=== PATIENT | male | born 1955 | race African-American/Black ===

== ENCOUNTER 2018-09-05 04:14 | Inpatient (IN) | payer OTHER ==
[2018-09-05] VITALS (7 sets, daily range): BP systolic 131–166; BP diastolic 61–84
[~2018-09-05] VITALS: Ht 177.8 cm; Wt 102.5 kg
--- NOTE | ~2018-09-05 | EKG ---
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89 : 1955 Requested By: Ivan Reddy Order Number: [id number] MD: Justus Rangel Measurements Intervals [place] Rate: 66 P: 79 CT: 163 QRS: -69 QRSD: 153 T: 49 QT: 402 QTc: 422 Interpretive Statements Sinus rhythm Right bundle branch block Possible Inferior infarct, old Compared to ECG 10/17/2015 11:17:52 Small inferior Q waves are now present Electronically Signed On 09-05-2018 8:18:54 CDT by Justus Rangel [email or web address] <ELECTRONICALLY SIGNED> By: Justus Rangel MD, [facility] 09/05/18 0818 0417 [id number] Justus Rangel MD, [facility] /EPI
[~2018-09-05 04:14] MED LIST: AMOXICILLIN 50500 MG PO; ASPIRIN81 M2 PO; ATIVAN0.5 MG PO; BENAZEPRIL-HCT1 EA10 PO; BENAZEPRIL-HCT1 EACH PO; BLOOD PRESSURE MED; CARISOPRODOL 3350 MG PO; CEFTRIAXON2 GM/50 ML IV; CELEBREX 200 M200 MG PO; COLACE 100 MG100 MG PO; CYMBALTA30 MG PO; DICLOFENAC SODI75 MG PO; FLOMAX0.4 MG PO; HYDROCODON-ACE1 EAC5 PO; HYDROCODONE-AP1 EAC6 PO; LASIX 40 MG TAB40 MG PO; LOPRESSOR25 PO; METHADONE HCL 110 M1 PO; NORFLEX100 MG PO; PERCOCET 5-3251 EACH PO; POTASSIUM20 PO; PRAVACHOL20 MG PO; PRAVACHOL40 MG PO; PREDNISONE 10 M10 MG PO; PREDNISONE 5 MG5 M1 PO; PRILOSEC40 MG PO; TOPROL XL25 MG PO; VALIUM5 MG PO; ZOFRAN ODT4 MG DISSOLVE
[2018-09-05] MEDS ORDERED: LOTENSIN10 MG PO (04:31)
[2018-09-05 04:32] LABS: ABSOLUTE NEUTROPHILS 3.3 thou/uL (1.4-8.2); EOSINOPHILS 2.3 % (0.0-3.0); HEMATOCRIT 42.2 % (42.0-52.0); HEMOGLOBIN 14.5 gm/dL (14.0-18.0); LYMPHOCYTES 46.3 % (24.0-44.0); MCH 31.5 pg (26.0-34.0); MCHC 34.4 g/dL (28.0-37.0); MCV 91.8 fL (80.0-100.0); MONOCYTES 9.5 % (1.0-8.0); PLATELET COUNT 237 thou/uL (150-400); POLYS 40.9 % (36.0-66.0); RDW 13.6 % (10.5-14.5)
[2018-09-05 04:40] LABS: ANION GAP 9 mmol/L (7-16); BUN 17 mg/dL (7-18); CHLORIDE 104 mmol/L (98-107); CO2 25 mmol/L (21-32); CREATININE 0.9 mg/dL (0.7-1.3); GLUCOSE 123 mg/dL (74-106); POTASSIUM 3.8 mmol/L (3.5-5.1); SODIUM 138 mmol/L (136-145)
[2018-09-05 04:49] LABS: TROPONIN-I <0.06 ng/mL (<0.06)
[2018-09-06 00:05] VITALS: BP 123/69
[2018-09-06 04:09] LABS: CREATININE 0.9 mg/dL (0.7-1.3); POTASSIUM 4.1 mmol/L (3.5-5.1)
[2018-09-06 04:36] LABS: ABSOLUTE NEUTROPHILS 4.6 thou/uL (1.4-8.2); BASOPHILS 0.5 % (0.0-2.0); EOSINOPHILS 1.4 % (0.0-3.0); HEMOGLOBIN 13.3 gm/dL (14.0-18.0); MCH 30.7 pg (26.0-34.0); MCHC 33.3 g/dL (28.0-37.0); MCV 92.2 fL (80.0-100.0); MONOCYTES 6.8 % (1.0-8.0); PLATELET COUNT 235 thou/uL (150-400); POLYS 56.3 % (36.0-66.0); RBC 4.34 mil/uL (4.50-6.00); WBC 8.2 thou/uL (4.0-11.0)
[2018-09-06 04:43] VITALS: BP 131/63
[2018-09-06 07:54] VITALS: BP 133/85
[2018-09-06 12:01] VITALS: BP 129/70
[2018-09-06 18:20] VITALS: BP 140/95
[2018-09-06 23:31] VITALS: BP 156/81
[2018-09-07 03:48] VITALS: BP 153/82
[2018-09-07 07:44] VITALS: BP 130/65
[2018-09-07 12:19] VITALS: BP 1344/82
[2018-09-07 16:57] VITALS: BP 150/79
[2018-09-07 19:43] VITALS: BP 142/80
[2018-09-07 19:55] VITALS: BP 98/65
[2018-09-08 04:52] VITALS: BP 146/69
[2018-09-08 08:11] VITALS: BP 140/76
[2018-09-08 12:14] VITALS: BP 137/66
[2018-09-08 16:36] VITALS: BP 140/74
[2018-09-08 19:07] VITALS: BP 141/77
[2018-09-09 04:32] VITALS: BP 125/72
[2018-09-09 07:46] VITALS: BP 144/77
[2018-09-09 12:06] VITALS: BP 143/81
[2018-09-09 19:06] VITALS: BP 127/69
[2018-09-10 03:59] VITALS: BP 132/66
[2018-09-10 08:05] VITALS: BP 133/77
[2018-09-10 12:10] VITALS: BP 128/78
[2018-09-10 15:55] VITALS: BP 117/80
[2018-09-10 19:30] VITALS: BP 127/85
[2018-09-11 03:29] VITALS: BP 125/65
[2018-09-11 07:50] VITALS: BP 128/74
[2018-09-11] MEDS ORDERED: AMLODIPINE BESY10 MG PO (10:25)
[2018-09-11 11:30] VITALS: BP 140/87
[2018-09-11 16:17] VITALS: BP 140/87
== END 2018-09-11 17:16 | disposition home or self-care (01) | DRG 199 ==
LOC: ER 04:14 → 2N 06:08 → EROBS 06:08 → 2N 06:28 → ENTRNSPT 09-07 17:10 → DELTRNSPT 09-08 10:58 → ENTRNSPT 09-11 16:37 → 2N 09-11 17:16
PROVIDERS: Emergency Medicine; Nurse Practitioner
PROC: 0W9930Z Drainage of Right Pleural Cavity with Drainage Device, Percutaneous Approach (ICD-10-PCS; principal; 2018-09-05)
PROC: 0BPQ30Z Removal of Drainage Device from Pleura, Percutaneous Approach (ICD-10-PCS; 2018-09-06)
DX: J93.83 Other pneumothorax (principal); J96.01 Acute respiratory failure with hypoxia; F12.90 Cannabis use, unspecified, uncomplicated; I10 Essential (primary) hypertension; E78.5 Hyperlipidemia, unspecified; G89.29 Other chronic pain; M54.9 Dorsalgia, unspecified; J44.9 Chronic obstructive pulmonary disease, unspecified; K59.00 Constipation, unspecified; Z87.891 Personal history of nicotine dependence; Z28.21 Immunization not carried out because of patient refusal; Z82.49 Family history of ischemic heart disease and other diseases of the circulatory system; Z83.3 Family history of diabetes mellitus; Z79.899 Other long term (current) drug therapy
CPT/HCPCS: 10081